=== PATIENT | female | born 1950 | race Caucasian/White ===

== ENCOUNTER → 2023-08-13 13:52 | Outpatient (REF) | payer OTHER, SELFPAY | LOC: HWRCS 13:52 | PROVIDERS: ATTENDING PHYSICIAN Internal Medicine Cardiovascular Disease; FAMILY PHYSICIAN Family Medicine | DX: I10 Essential (primary) hypertension (principal); I49.1 Atrial premature depolarization | CPT/HCPCS: 93306 ==

== ENCOUNTER → 2023-09-12 10:49 | Outpatient (REF) | payer OTHER, SELFPAY | LOC: HWRAD 10:49 | PROVIDERS: ATTENDING PHYSICIAN Family Medicine | DX: K76.0 Fatty (change of) liver, not elsewhere classified (principal) | CPT/HCPCS: 76700 ==

== ENCOUNTER → 2023-12-16 12:51 | Outpatient (REF) | payer OTHER, SELFPAY | LOC: HWWDC 12:51 | PROVIDERS: ATTENDING PHYSICIAN Family Medicine | DX: Z12.31 Encounter for screening mammogram for malignant neoplasm of breast (principal) | CPT/HCPCS: 77063; 77067 ==

== ENCOUNTER 2024-02-03 18:44 | Inpatient (IN) | payer OTHER, SELFPAY ==
[2024-02-03] VITALS (11 sets, daily range): BP systolic 125–171; BP diastolic 64–79; BMI 28.6; BMI 28.2
--- NOTE | 2024-02-03 12:56 | ED.CVA ---
History of Present Illness
General
Chief Complaint: CVA/TIA Symptoms
Source: patient
Exam Limitations: none
Time Seen by Provider: 02/03/24 12:38
Nursing documentation reviewed up to this point in time: agreed with
Onset of Stroke Symptoms
Onset of symptoms known: No
Date of onset of symptoms: 02/03/24
Time pt last seen normal is known: No
Date last time pt seen normal: 02/02/24
History of Present Illness
History of Present Illness:
The patient is a 73-year-old female with a past medical history of high blood pressure and high cholesterol who reports that she went to bed last night at 11 PM. She reports she woke up in the middle the night at 3 AM and noticed greatly diminished
vision from her left eye. Patient describes it as ' seeing black'. Patient denies eye pain, headache, weakness and numbness. Patient reports she went back to sleep and when she woke up at 9 AM, her symptoms were still there. Patient initially
tells me that she is unable to see any light or anything out of the left eye. Patient reports she is due for cataract surgery this week. She denies a history of stroke. She reports a history of high blood pressure and high cholesterol. She
denies a smoking history. The patient reports that if anything, her peripheral vision out of the left eye seems slightly better than any other parts of the vision from her left eye.
Past History
Past History
ED Past Medical History: HTN and Hypercholesterolemia
ED Past Surgical History: Other
Social History
Tobacco: Non-smoker
Alcohol: Other
Drug: None
Personal:
Living: with family
Employment: Other
Family History
Family History: Other
Review of Systems
Review of Systems
Allergies reviewed?: Yes
All Other Systems: ROS reviewed and negative except as documented in HPI and ROS
Constitutional: Reports no symptoms
EENT: Reports other
Respiratory: Reports no symptoms
Cardiac: Reports no symptoms
ABD/GI: Reports no symptoms
: Reports no symptoms
Musculoskeletal: Reports no symptoms
Skin: Reports no symptoms
Neurological: Reports other (Loss of vision of left eye)
Endocrine: Reports no symptoms
Hematologic/Lymphatic: Reports no symptoms
Psychiatric: Reports no symptoms
Phy Exam
Physical Exam
Physical Exam:
Physical Exam
General: no apparent distress, not acutely ill
Neck: supple. no meningeal signs. No bruit appreciated. No global tenderness of eyes bilaterally
Heart: s1/s2 regular rate and rhythm, no murmur. equal radial pulses.
Lungs: no acute respiratory distress. clear bilaterally
Abdomen: normal bowel sounds. not tender. no CVAT
Neuro: alert and orientedx3. Cranial nerves equal and symmetric bilaterally. 5 out of 5 strength in all extremities. Normal [id number]. Patient able to see light from left eye. Patient able to count to fingers
from left eye but states that otherwise the vision is extremely diminished from left eye. Visual andrew intact in right eye. Equal sensation in face, upper and lower extremities bilaterally. Answers all questions appropriately.
Skin: no rash
Psychiatric: well kept. interactive and cooperative
Extremities: no edema. no calf tenderness. negative homans. good distal pulses
Scores
NIH Stroke Score
Level of Consciousness: 0 - Alert
LOC Questions: 0-Answers both correctly
LOC Commands: 0-Performs both correctly
Best Horizontal Gaze: 0-Normal
Visual Anrdew: 2=Full hemianopia
Facial Palsy: 0=Normal, symmetrical
Motor - Right Arm: 0=No drift 10 seconds
Motor - Left Arm: 0=No drift 10 seconds
Motor - Right Le-No drift 5 seconds
Motor - Left Le-No drift 5 seconds
Limb Ataxia: 0-Absent
Sensation: 0-Normal
Best Language: 0-No aphasia
Dysarthria: 0-Normal
Extinction and Inattention: 0-No abnormality
Total Score:: 2
Course
Orders/Labs/Results
Orders:
Orders
02/03/24 12:52
Consult Neurology [NEUROLOGY CONSULT] Urgent
Consulting Provider: Khushbu Dickson
Was physician already notified: Yes
Reason for consult: visual loss L eye
02/03/24 12:54
CT Head & Neck Angio W/wo IV Urgent
Comment:
Reason For Exam: visual loss L eye
02/03/24 12:55
EKG [Electrocardiogram (*1)] Urgent
Reason for Study: TIA/Stroke
EKG- Treatment ONCE
02/03/24 13:00
Visual Acuity- Treatment ONCE
02/03/24 13:03
Complete Blood Count/With Diff Urgent
Comprehensive Metabolic Panel Urgent
Erythrocyte Sed Rate Urgent
02/03/24 14:30
Echo 2D MMode Color/Doppler Routine
Reason for Study: Thrombotic source for stroke-like sxs
02/03/24 14:39
[id number] Enzyme [S] Routine
Hemoglobin A1c [Glycohemoglobin (HgbA1c)] Routine
Lipid Profile [Cardiovascular Evaluation] Routine
02/03/24 14:41
MR Brain Without Contrast Routine
Comment:
Reason For Exam: L CRAO
OK for patient to be off Cardiac Monitoring for MRI: No
Recent pill cam endoscopy?: No
02/03/24 14:43
CARDIOLOGY CONSULT Routine
Consulting Provider: Yoandy Wood
Was physician already notified: Yes
Reason for consult: Holter/ILR
02/03/24 14:44
Aspirin Chewable [Low Strength Aspirin] 81 mg PO NOW STA
02/03/24 15:00
Aspirin Low Dose EC [Aspir Low (Enteric Coated)] 81 mg PO DAILY
Abnormal Lab Results
02/03/24
13:03
RBC 3.54 L 10^6/uL
(4.20-5.40)
Hgb 10.5 L g/dL
(12.0-16.0)
Hct 32.1 L %
(37.0-47.0)
MCHC 32.7 L g/dL
(33.0-37.0)
RDW 16.1 H %
(11.5-14.5)
MPV 10.9 H fL
(7.4-10.4)
Abs Immat Gran (auto) 0.3 H 10^3/uL
(0-0.05)
Immature Gran % 3.7 H %
(0-0.5)
Lymphocytes % 15.2 L %
(20.5-51.1)
Basophils % 2.3 H %
(0-2)
ESR 50 H mm/hour
(0-20)
Potassium 5.2 H mmol/L
(3.5-5.1)
BUN 20 H mg/dl
(7-17)
Glucose 111 H mg/dl
(70-99)
AST 45 H U/L
(14-36)
02/03/24 13:03
02/03/24 13:03
Vital Signs
Initial and Last Documented VS:
Initial Vital Signs
Temp Pulse Resp BP Pulse Ox
97.9 F 80 16 171/74 98
02/03/24 12:26 02/03/24 12:26 02/03/24 12:26 02/03/24 12:02/03/24 12:26
Last Documented Vital Signs
Temp Pulse Resp BP Pulse Ox
97.9 F 80 16 171/74 99
02/03/24 12:26 02/03/24 12:26 02/03/24 12:26 02/03/24 12:02/03/24 12:40
MDM/Problems Addressed
Differential Diagnosis Includes:
Acute retinal artery occlusion, intracranial mass, intracranial hemorrhage, retinal detachment
MDM/Problems Addressed:
Patient presents with acute visual loss from left eye
Chronic conditions affecting care: HTN
Acute Exacerbation and/or Progression of Chronic Illness:
Patient is acutely hypertensive which may be contributing to her loss of vision from left eye and causing brain ischemia
Acute Exacerbation and/or Progression of Chronic Illness: HTN
*Radiology
Radiology exam reviewed: radiology read reviewed
*Pulse Oximetry
Patient hypoxic: no
*EKG
Interpreted by ED Provider?: Yes
Interpretation: normal
Comparison EKG: no changes
Rate: normal
Rhythm: sinus
[place]: normal axis
Interval: normal interval
QRS Pattern: normal QRS
Ischemia: no ischemia
*Machine Riveter Interpretation
Rate: normal
Interpretation: normal
Rhythm: sinus
*Critical Care Note
Total Time (30-74mins, 75-104mins- exclusive of procedures): 35 minutes of critical ca
comment:
35 minutes of critical care given to the patient including frequent neurological assessments, speaking to neurology, reviewing patient's CT, counseling the patient and family and reviewing her blood work
Data Reviewed
Source: patient
Patient Management
Social determinants of health affecting care: Living situation and Strong social support
Discussion with other providers: Hospitalist and Other (Neurologist who performed a bedside consult)
Escalation/DeEscalation of care consider admission/obs:
Patient will be admitted for visual changes likely due to ischemic stroke
Update Note
Update Note:
Patient is not a tPA candidate given that her onset of symptoms were at 3 AM or even earlier.
ED Attending Note
-
Portions of this chart may have been created with voice recognition software.� Occasional wrong word or��sound alike� substitutions may have occurred due to the inherent limitations of voice recognition software.
Discharge Plan
Departure
Patient Disposition: Admit
Date of Disposition: 02/03/24
Time of Disposition: 14:41
Admit to: Telemetry
Presentation/result/management discussed w/ accepting MD/DO: Hospitalist
Patient with high blood pressure during this ER visit?: Yes
Condition: Good
Covid-19: Not Applicable
Discharge Problem:
Acute left retinal artery occlusion
Prescriptions:
No Action
lisinopril 20 MG tablet
20 mg PO DAILY
cholecalciferol (vitamin D3) [Vitamin D3] 2,000 UNIT capsule
2,000 unit PO DAILY
venlafaxine 75 mg capsule,extended release 24hr
75 mg PO DAILY
aspirin 81 mg Tablet,Delayed Release (Dr/Ec)
81 mg PO DAILY
ezetimibe 10 mg tablet
10 mg PO DAILY
Probiotic 10 billion cell Capsule
10,000 mmu cells PO DAILY
Interventions
Interventions:
*Risk Screen - Suicide Last Done: 02/03/24 12:26
*General Assessment Last Done: 02/03/24 12:26
*Neglect/Abuse Screening Last Done: 02/03/24 12:26
ED- Fall Risk Assessment Last Done: 02/03/24 12:40
*ED COVID-19 Vaccine History Last Done: 02/03/24 13:07
ED- Pulmonary Assessment Last Done: 02/03/24 12:40
ED- Neurological Assessment Last Done: 02/03/24 12:40
ED- Cardiac Assessment Last Done: 02/03/24 12:40
ED Swallowing Screen Last Done: 02/03/24 12:40
Discharge Date and Time
Print Language: S[place]UDAN[place]
[2024-02-03 13:12] LABS: % Basophils 2.3 % (0-2); % Eosinophils 3.1 % (0-6); % Immature Granulocytes 3.7 % (0-0.5); % Lymphocytes 15.2 % (20.5-51.1); % Monocytes 6.8 % (1.7-9.3); % Neutrophils 68.9 % (42.2-75.2); Absolute Basophils 0.2 10^3/uL (0-0.2); Absolute Eosinophils 0.2 10^3/uL (0-0.7); Absolute Immature Granulocytes 0.3 10^3/uL (0-0.05); Absolute Lymphocytes 1.2 10^3/uL (1.2-3.4); Absolute Monocytes 0.5 10^3/uL (0.1-0.6); Absolute Neutrophils 5.3 10^3/uL (1.4-6.5); Hematocrit 32.1 % (37.0-47.0); Hemoglobin 10.5 g/dL (12.0-16.0); Mean Corp Hgb Conc. 32.7 g/dL (33.0-37.0); Mean Corpuscular Hgb 29.7 pg (27.0-31.0); Mean Corpuscular Volume 90.7 fL (81.0-99.0); Mean Platelet Volume 10.9 fL (7.4-10.4); Nucleated Red Blood Cells % 0.5 %; Platelet Count 376 10^3/uL (130-400); Red Blood Cell Count 3.54 10^6/uL (4.20-5.40); Red Cell Dist. Width 16.1 % (11.5-14.5); White Blood Cell Count 7.8 10^3/uL (4.8-10.8)
--- NOTE | 2024-02-03 13:28 | CON.NEURO ---
Consultation
Order
Date of Consultation: 02/03/24
Requesting Provider: Janie Warner MD
Reason for Consult: Visual loss left eye
CC: left visual loss
HPI: This is a 73-year-old woman who presented to [facility] on February 03, 2024 with visual deficits. According to the patient she developed an acute painless visual loss in the left eye upon awakening around 3 AM today. Last time
seen in usual state of health�11 PM on 02/02/2024. She initially thought it was a film from her makeup remover and went back to sleep. The vision loss persisted in the morning, prompting her to seek medical attention. The patient reports taking
approximately 2 hours to arrive at the hospital due to transportation issues. The patient has a scheduled L cataract surgery for the upcoming Saturday. No reports of headache, dysarthria, motor or sensory deficits
ER VS: 171/74, 80, afebrile
PDMP: none
Labs: Hemoglobin�10.5,
CTA head/neck-no evidence of significant intra and extracranial stenosis.
PMH: HTN, DLP, osteopenia, OA, vitamin D deficiency, ILEANA, eczema, hepatic steatosis. nephrolithiasis
PSH:L TKA, tubal ligation, tonsillectomy, IAN, Ureteral stent.
SH: nonsmoker; ; social ETOh use
FH: pancreatic cancer
All: statins
ROS:Constitutional: Negative. Negative for chills, fever and unexpected weight change.
HENT: Positive for neck visual
Eyes: Negative. Negative for photophobia, pain and visual disturbance.
Respiratory: Negative for cough, choking and shortness of breath.
Cardiovascular: Negative for chest pain, palpitations and leg swelling.
Gastrointestinal: Negative for abdominal pain and vomiting.
Endocrine: Negative. Negative for cold intolerance.
Genitourinary: Negative for dysuria, flank pain and urgency.
Musculoskeletal: Negative for back pain, gait problem, neck pain and neck stiffness.
Skin: Negative for rash.
Allergic/Immunologic: Negative. Negative for immunocompromised state.
Neurological: Negative for dizziness, tremors, seizures, speech difficulty, numbness and headaches.
Psychiatric/Behavioral: Negative for behavioral problems, confusion and hallucinations.
General: Well developed. In no acute distress.
Cardio: Regular rate and rhythm without murmur. Extremities are without cyanosis or edema.
Neuro:
Mental Status: Alert, oriented to person, place, and date. Normal attention and recall. Good fund of knowledge. Follows complex requests across the midline. Comprehension, naming, and repetition intact.
Cranial Nerves: OS-no light perception. Pupils are equally round and reactive to light. EOMs full. Visual andrew full to confrontation on the R. No ptosis. No nystagmus. V1-V3 intact to light touch and pinprick bilaterally, symmetric. Face
symmetric. Normal hearing AU. The palate elevated well. SCMs and traps 5/5. Tongue midline. No dysarthria.
Motor: Normal bulk and tone. No pronator or arm drift. Strength 5/5 throughout. No clonus.
Reflexes: 2+ throughout the upper extremities and knees. Plantar responses flexor bilaterally.
Sensory: Normal vibration and JPS at the toes
Coordination: No dysmetria or tremor.
Gait: deferred
Assessment and Plan:
I. L central retinal artery occlusion(CRAO).
II. Hilar lymphadenopathy.
III. HTN.
-Continue Telemetry monitoring.
-Brain MRI without ileana
-Continue ASA 81 mg QD indefinitely.
-Lipitor 40 mg QHS.
-Please check HbA1C, LDL,ESR, CRP, HERMAN
-Cardiology consult
-Loop recorder if no events of Telemetry and unremarkable TTE
-PT.
-Ophthalmology consult
-DVT prophylaxis.
I personally reviewed all radiology and labs along with past medical records pertinent to current medical problems. Total time spent in patient care is 60 minutes.
Thank you for allowing us to participate in the care of this patient. We will continue to follow. Please do not hesitate to contact us with any questions or concerns.
Subjective/Objective
Subjective Data
Date of Service: February 03, 2024
Objective Data
Vital Signs
Temp Pulse Resp BP Pulse Ox
36.6 C 80 16 171/74 99
02/03/24 12:26 02/03/24 12:02/03/24 12:02/03/24 12:02/03/24 12:40
Lab Results
02/03/24 13:03
Patient Allergies
No Known Allergies Allergy (Verified 02/03/24 12:26)
Medications
-
Home Medications
�Medication �Instructions �Recorded
lisinopril 20 mg tablet 20 mg PO DAILY Blood Pressure 11/21/07
cholecalciferol (vitamin D3) 50 2,000 unit PO DAILY Supplement 09/11/16
mcg (2,000 unit) capsule (Vitamin
D3)
Lactobacillus acidophilus 10 10,000 mmu cells PO DAILY probiotic 02/03/24
billion cell capsule (Probiotic)
aspirin 81 mg tablet,delayed 81 mg PO DAILY Blood Clot 02/03/24
release Prevention/Tx
ezetimibe 10 mg tablet 10 mg PO DAILY High Cholesterol 02/03/24
venlafaxine 75 mg capsule,extended 75 mg PO DAILY depression/anxiety 02/03/24
release 24 hr
Vital Signs and Labs
-
Vital Signs and Labs:
Vital Signs
Temp Pulse Resp BP Pulse Ox
36.6 C 80 16 171/74 99
02/03/24 12:26 02/03/24 12:26 02/03/24 12:02/03/24 12:26 02/03/24 12:40
Lab Results
02/03/24 13:03
02/03/24 13:03
Sodium 142 mmol/L (135-145) 02/03/24 13:03
Potassium 5.2 mmol/L (3.5-5.1) H 02/03/24 13:03
BUN 20 mg/dl (7-17) H 02/03/24 13:03
Glucose 111 mg/dl (70-99) H 02/03/24 13:03
Calcium 9.6 mg/dl (8.4-10.2) 02/03/24 13:03
Home Medications
-
Home Medications
lisinopril 20 mg tablet 20 mg PO DAILY Blood Pressure 11/21/07
cholecalciferol (vitamin D3) 50 mcg (2,000 unit) capsule (Vitamin D3) 2,000 unit PO DAILY Supplement 09/11/16
Lactobacillus acidophilus 10 billion cell capsule (Probiotic) 10,000 mmu cells PO DAILY probiotic 02/03/24
aspirin 81 mg tablet,delayed release 81 mg PO DAILY Blood Clot Prevention/Tx 02/03/24
ezetimibe 10 mg tablet 10 mg PO DAILY High Cholesterol 02/03/24
venlafaxine 75 mg capsule,extended release 24 hr 75 mg PO DAILY depression/anxiety 02/03/24
[2024-02-03 13:31] LABS: ALT (SGPT) 20 U/L (0-35); AST (SGOT) 45 U/L (14-36); Albumin 4.8 g/dl (3.5-5.0); Alkaline Phosphatase 124 U/L (38-126); Blood Urea Nitrogen 20 mg/dl (7-17); Calcium 9.6 mg/dl (8.4-10.2); Carbon Dioxide 25 mmol/L (22-30); Chloride 104 mmol/L (98-107); Estimated Creatinine Clearance 67 ml/min; Glucose 111 mg/dl (70-99); Potassium 5.2 mmol/L (3.5-5.1); Sodium 142 mmol/L (135-145); Total Bilirubin 0.7 mg/dl (0.2-1.3); Total Protein 8.2 g/dl (6.3-8.2); eGFR > 60.00
[2024-02-03 14:31] LABS: Erythrocyte Sed Rate 50 mm/hour (0-20)
[2024-02-03] MEDS: LOW STRENGTH ASPIRIN 81 MG PO (15:14)
--- NOTE | 2024-02-03 15:33 | HPS.HSE ---
Family Physician
-
Family Physician:
Chief Complaint
-
Left Vision Loss
History of Present Illness
Patient is a 73 y/o female past medical history of hypertension, hyperlipidemia and anxiety who presents with vision loss. Patient awoke about 3AM this morning and noted she was unable to see out of her left eye. She initially felt it was related
to her makeup remover so she went back to sleep. Upon waking later in the morning the vision loss remained prompting her to seek medical attention. She denies focal numbness, tingling or weakness. She denies speech difficulties. She denies
headache. She denies prior history of stroke.
Medical History
Past Medical History
Past Medical History: Reports Other
Additional Past Medical History:
Essential Hypertension
Hyperlipidemia
Anxiety
Osteoarthritis
Anemia
Past Surgical History: Reports Other
Additional Past Surgical History:
Tubal Ligation
Hysterectomy
Left Knee Replacement
Social History
Tobacco: Non-smoker
Alcohol: None
Family History
Family History: Not pertinent
Allergies / Home Medications
Allergies reflects when Allergies were last updated in [employer].
Home Medications with original date entered in [employer]
Allergy/Medication List:
Allergies
Allergy/AdvReac Type Severity Reaction Status Date / Time
No Known Allergies Allergy Verified 02/03/24 12:26
Home Medications
lisinopril 20 mg tablet 20 mg PO DAILY Blood Pressure 11/21/07
cholecalciferol (vitamin D3) 50 mcg (2,000 unit) capsule (Vitamin D3) 2,000 unit PO DAILY Supplement 09/11/16
Lactobacillus acidophilus 10 billion cell capsule (Probiotic) 10,000 mmu cells PO DAILY probiotic 02/03/24
aspirin 81 mg tablet,delayed release 81 mg PO DAILY Blood Clot Prevention/Tx 02/03/24
ezetimibe 10 mg tablet 10 mg PO DAILY High Cholesterol 02/03/24
venlafaxine 75 mg capsule,extended release 24 hr 75 mg PO DAILY depression/anxiety 02/03/24
Review of Systems
-
A 12 point ROS was completed and negative except as noted: Yes
Constitutional: Denies Fever or Chills
Respiratory: Denies Cough or Trouble Breathing
Cardiac: Denies Chest Pain or Palpitations
Abdomen/GI: Denies Abdominal Pain, Nausea, Vomiting or Diarrhea
Neurological: Reports See HPI
Physical Exam
Vital Signs
Vital Signs
Temp Pulse Resp BP Pulse Ox
97.9 F 80 16 171/74 99
02/03/24 12:26 02/03/24 12:26 02/03/24 12:26 02/03/24 12:26 02/03/24 12:40
Physical Exam
General: Comfortable and Conversant
HEENT: Anicteric, Moist mucous membranes and Other (EOMI; Pupils dilated following dilated retina exam performed by ophthalmology)
Respiratory: Clear and Non Labored Respirations
Cardiac: S1/S2 and Regular Rhythm
GI: Soft and Non Tender
Rectal: Deferred by Provider
Musculoskeletal: No Clubbing, No Cyanosis and No Edema
Skin: Warm and Dry
Neuro: Awake, Alert, Oriented and Nonfocal/grossly intact
Psych: Calm
Laboratory Results
-
02/03/24 13:03
02/03/24 13:03
Laboratory Results
Total Bilirubin 0.7 mg/dl (0.2-1.3) 02/03/24 13:03
AST 45 U/L (14-36) H 02/03/24 13:03
ALT 20 U/L (0-35) 02/03/24 13:03
Alkaline Phosphatase 124 U/L (38-126) 02/03/24 13:03
Data Reviewed
-
CT Scan: Report Reviewed by me
Lab Data: Labs Reviewed by me
Impression/Plan
-
Left Eye Vision Loss, concern for left central retinal artery occlusion vs giant cell arteritis
-Patient evaluated by Neurology and Ophthamology in ED
-Continue aspirin
-Check Brain MRI
-Start methylprednisolone 1000mg IV Daily
-Consult Vascular Surgery for temporal arterty biopsy
Essential Hypertension
-Hold lisinopril due to mild hyperkalemia
Hyperlipidemia
-Check Lipid Panel
-Start Lipitor 40mg Daily
-Continue Zetia
Anxiety
-Continue venlafaxine
DVT proph: SCDs
Code Status: Full Code
[2024-02-03 15:46] LABS: HDL Cholesterol 39 mg/dl; LDL Cholesterol, Calculated 129 mg/dl; Total Cholesterol 210 mg/dl (50-199); Triglyceride 211 mg/dl (10-149); Very Low Density Lipoprotein 42 mg/dl (0-30)
[2024-02-03] MEDS: ASPIR LOW (ENTERIC COATED) PO (16:06)
[2024-02-03] MEDS: DELTASONE 60 MG PO (17:51)
--- NOTE | 2024-02-03 18:35 | W.PN.UPDATE ---
Update Note
Progress Note Update
This is an addendum to the H&P written by Christine Johnson on 02/03/2024.� Patient seen and examined independently with PA.
73-year-old female past medical history of cataracts, hypertension, anxiety/depression, osteoarthritis, osteoporosis, gallstones, ureteral calculi status post stenting, obesity presenting with acute painless vision loss in the left eye since this
morning.� No other neurological symptoms.
Concern for central retinal artery occlusion.� Ophthalmology consulted for retinal examination.�Seen by Dr. Rodas who thinks either central retinal artery occlusion or possibly temporal arteritis.��CTA head and neck shows no significant vascular
occlusion, aneurysm or dissection.� Neurology consulted and recommended MRI brain, continue aspirin.� Check A1c, lipid panel, HERMAN, CRP, ESR.� Echocardiogram unremarkable. Starting 1000 methylprednisolone daily. NPO past midnight for temporal artery
biopsy by vascular tomorrow.�
Labs show mild hyperkalemia.� Hold lisinopril.�
--- NOTE | 2024-02-03 19:09 | EDRN ---
vital signs captured from previous nurse
--- NOTE | 2024-02-03 20:45 | PTCARENOTE ---
Pt transferred from ED. Pt AAOX3, able to make needs known, VSS. NIH 2, neuro checks performed, vision loss in left eye. Pt oriented to unit, call sosa within reach, bed in lowest position. Will continue with current plan.
[2024-02-03] MEDS: SOLU-MEDROL 258 MG IV (21:57)
[2024-02-04] VITALS (10 sets, daily range): BP systolic 14–163; BP diastolic 59–91; PULSE 84
[2024-02-04] MEDS: ZETIA 10 MG PO (07:50)
[2024-02-04] MEDS: EFFEXOR XR 75 MG PO (07:50)
[2024-02-04] MEDS: ASPIR LOW (ENTERIC COATED) 81 MG PO (07:50)
--- NOTE | 2024-02-04 08:04 | CON.CAR ---
Addendum entered and electronically signed by Erika Cruz MD 02/04/24 10:07:
I saw and examined the patient.
The CUSTOMER SECURITY CLERK's note was reviewed and I agree with the note.
Comment: 73-year-old female who is known to me in the outpatient setting with hypertension, dyslipidemia and statin intolerance presenting with sudden onset of left sided vision loss. She is beginning to see some peripheral vision now, no other
symptoms associated with this finding. On exam she is a regular rate and rhythm with a normal S1-S2 no murmurs or rubs were appreciated abdomen soft nontender nondistended without needs medically. Extremities are warm well-perfused. Lungs are
clear to auscultation. EKG tracing shows normal sinus rhythm. Telemetry shows sinus rhythm. Echocardiogram 02/03/2024 normal biventricular systolic function trivial pericardial effusion no significant valve disease. No source of emboli
identified.
For her sudden vision loss, diagnosis is needed. If this is GCA, then would continue current care. If this was a CVA, would need to consider embolic etiology as well as intensify her risk factor management. Given age, would recommend an
implantable loop recorder. Would recommend PCSK9 inhibitor at that point. Plan is for further evaluation today with MRI and temporal artery biopsy.She is already receiving high-dose steroids. Vascular, neurology and ophthalmology all involved.
Will follow.
Original Note:
Consultation
Consultation Request
Date/Time Consultation Requested: 02/03/2024 14:45
Date/Time Consultation Performed: 02/04/2024 08:00
Requesting Provider: Dr. Dickson
Performing Provider: ANGELA Moyer for Dr. Cruz
Reason for Consultation: Retinal artery occlusion
Medical History
-
Chief Complaint: Vision loss
History of Present Illness:
Pennie Sorto is a 73-year-old female (known to Dr. Cruz, her primary electrical assembler), with hypertension, dyslipidemia and, statin intolerance, who presented to the emergency department yesterday, 02/03/2024 with sudden vision loss in her left
eye. She reports she woke up at 3:00 in the morning prior to arrival to use the bathroom and had some visual loss but not complete. When she woke up in the morning she could not see out of her left eye. Differential diagnosis includes retinal
artery occlusion and giant cell arteritis. She has been started on steroids. She has been seen by ophthalmology and neurology. Cardiology was consulted for the possibility of cardiac monitoring versus ILR. She is having no chest pain. No
palpitations. No atrial fibrillation on telemetry. Some of her vision has returned peripherally. She is currently on methylprednisolone 1000 mg daily.
Past Medical History
Past Medical History: HTN and Hypercholesterolemia
Past Surgical History: Gynecological and Orthopedic
Social History
Tobacco: Non-Smoker
Alcohol: Occasional
Drug: None
Employment: Retired
Family History
Family History: Reviewed & Not Pertinent
Allergies / Home Medications
Allergy/AdvReac Type Severity Reaction Status Date / Time
No Known Allergies Allergy Verified 02/03/24 12:26
�Medication �Instructions �Recorded �Confirmed �Type
lisinopril 20 mg tablet 20 mg PO DAILY Blood Pressure 11/21/07 02/03/24 History
cholecalciferol (vitamin D3) 50 2,000 unit PO DAILY Supplement 09/11/16 02/03/24 History
mcg (2,000 unit) capsule (Vitamin
D3)
Lactobacillus acidophilus 10 10,000 mmu cells PO DAILY probiotic 02/03/24 02/03/24 History
billion cell capsule (Probiotic)
aspirin 81 mg tablet,delayed 81 mg PO DAILY Blood Clot 02/03/24 02/03/24 History
release Prevention/Tx
ezetimibe 10 mg tablet 10 mg PO DAILY High Cholesterol 02/03/24 02/03/24 History
venlafaxine 75 mg capsule,extended 75 mg PO DAILY depression/anxiety 02/03/24 02/03/24 History
release 24 hr
Review of Systems
-
History Source: Patient
All other systems: Negative unless noted
Constitutional: No Symptoms
EENT: Other (left eye vision loss)
Respiratory: No Symptoms
Cardiac: No Symptoms
Abdomen/GI: No Symptoms
: No Symptoms
Musculoskeletal: No Symptoms
Skin: No Symptoms
Neurological: No Symptoms
Endocrine: No Symptoms
Hematologic/Lymphatic: No Symptoms
Physical Exam
Vital Signs
Temp Pulse Resp BP Pulse Ox
97.9 F 93 14 143/91 93
02/04/24 03:20 02/04/24 03:20 02/04/24 03:20 02/04/24 03:20 02/04/24 03:20
Physical Exam
General: Well Developed, Well Nourished, No Apparent Distress and Comfortable
HEENT: Normocephalic and Anicteric
Respiratory: Clear and Non Labored Respirations
Cardiac: S1/S2 and Regular Rhythm
Breast: Deferred by me
GI: Soft, Non Tender, Non Distended and Normal Bowel Sounds
Rectal: Deferred by Provider
Genito-urinary: No Costovertebral Tender
Musculoskeletal: No Clubbing, No Cyanosis and No Edema
Skin: Warm and Dry
Neuro: AO x 3
Hematologic/Lymphatic: No Lymphadenopathy
Psych: Calm
Impression / Plan
-
BACKGROUND: 73F with HTN, HLD, statin intolerance presented with loss of vision from left eye
Primary electrical assembler: Dr. Cruz
IMPRESSION/PLAN:
Left eye vision loss
-Retinal artery occlusion versus giant cell arteritis
-ESR 50, CRP 6.30
-MRI pending
Ectopic atrial rhythm, denies palpitations
HTN
-Lisinopril on hold by primary service for mild hyperkalemia, BMP pending
Dyslipidemia
-Lipid panel: TC 210, LDL 129, HDL 39, TG 211
-Intolerant to simvastatin, atorvastatin, and rosuvastatin (all cause myalgia)
-Continue Zetia
SUBJECTIVE:
Denies palpitations. No atrial fibrillation on telemetry.
DATA:
Transthoracic echocardiogram, 02/03/2024:
CONCLUSIONS
Normal left ventricular size, wall thickness and systolic function. No regional
wall motion abnormalities are seen. LV ejection fraction is 60% .
Mild tricuspid regurgitation.
Mild pulmonic regurgitation.
Trivial pericardial effusion.
Compared to previous echo 08/13/23 there is now a trivial pericardial effusion.
Data Reviewed
-
EKG: Report Reviewed by me (Sinus rhythm, rate 76)
Medical Tests (Nuc Med, Echo etc): Report Reviewed by me (Echocardiogram as above)
Labs: Labs Reviewed by me
Old Records: Reviewed
[2024-02-04 08:38] LABS: Glycohemoglobin (HgbA1c) 5.3 % (4.0-5.6)
[2024-02-04 08:48] LABS: Hematocrit 32.1 % (37.0-47.0); Hemoglobin 10.6 g/dL (12.0-16.0); Mean Corpuscular Volume 87.9 fL (81.0-99.0); Mean Platelet Volume 11.1 fL (7.4-10.4); Platelet Count 424 10^3/uL (130-400); Red Blood Cell Count 3.65 10^6/uL (4.20-5.40); Red Cell Dist. Width 16.1 % (11.5-14.5); White Blood Cell Count 12.7 10^3/uL (4.8-10.8)
[2024-02-04 09:08] LABS: Blood Urea Nitrogen 18 mg/dl (7-17); Calcium 9.9 mg/dl (8.4-10.2); Carbon Dioxide 20 mmol/L (22-30); Chloride 105 mmol/L (98-107); Estimated Creatinine Clearance 66 ml/min; Glucose 179 mg/dl (70-99); Potassium 4.6 mmol/L (3.5-5.1); Sodium 140 mmol/L (135-145); eGFR > 60.00
--- NOTE | 2024-02-04 09:24 | CON.VAS ---
Addendum entered and electronically signed by Grover Quezada III, MD 02/04/24 11:37:
This patient was seen and examined with ANGELA Trinh. I agree with the history and physical exam as well as the assessment and plan. I have the following additions:
Symptom constellation has raised concerns from the medical team for temporal arteritis as a potential diagnosis.
We have been asked to perform temporal artery biopsy.
The technical aspects of this procedure were discussed with the patient. The benefits and rationale for this approach were discussed with her in detail. Operative risks were discussed with her in detail including but not limited to bleeding,
infection, wound healing complications and negative biopsy result. She expressed a clear understanding of our conversation and agrees to proceed with surgery as detailed above.
Signed:
Grover Quezada III, MD
[facility]
[phone] (fdpy)
Original Note:
Consultation
Consultation Request
Date/Time Consultation Performed: 02/04/2024 0800
Requesting Provider: 02/04/2024 0800
Performing Provider: Tessy Nunn GRADUATE RESEARCH ASSISTANT-C, for Grover Quezada III, MD
Reason for Consultation: Left eye acute vision loss
Medical History
-
Chief Complaint: Acute painless left eye vision loss
History of Present Illness:
This is a 73-year-old female with significant past medical history of hypertension, hyperlipidemia, osteoarthritis, anemia, and anxiety who presents with acute painless left eye vision loss. Patient presented to ED on 02/03/2024, reporting acute
left eye vision loss. Patient notes she initially woke up at 3AM on 02/03/2024 and noted that she was unable to see out of her left eye. She endorses that she was very fatigued so she initially felt maybe her eye make-up remover was in her eye
clouding her vision. However, when she woke for the day around 9 AM she realized she had lost complete vision in her left eye prompting her to seek medical attention. She denies any accompanying symptoms including paresthesia, unilateral weakness,
aphasia, dysarthria, headache, prior vision loss/transient vision loss, or pain over temporal area. She does endorse intermittent jaw pain, however notes that is her baseline from clenching her teeth overnight. She denies prior history of seeing a
vascular surgeon or vascular intervention. Denies any prior history of stroke or strokelike symptoms.
Past Medical History
Past Medical History: HTN and Other (hyperlipidemia, anxiety, Osteoarthritis, Anemia, eczema, hepatic steatosis, nephrolithiasis)
Past Surgical History: Gynecological (Tubal Ligation, Hysterectomy) and Orthopedic (Left Knee Replacement)
Social History
Tobacco: Non-Smoker
Alcohol: None
Allergies / Home Medications
Allergy/AdvReac Type Severity Reaction Status Date / Time
No Known Allergies Allergy Verified 02/03/24 12:26
�Medication �Instructions �Recorded �Confirmed �Type
lisinopril 20 mg tablet 20 mg PO DAILY Blood Pressure 11/21/07 02/03/24 History
cholecalciferol (vitamin D3) 50 2,000 unit PO DAILY Supplement 09/11/16 02/03/24 History
mcg (2,000 unit) capsule (Vitamin
D3)
Lactobacillus acidophilus 10 10,000 mmu cells PO DAILY probiotic 02/03/24 02/03/24 History
billion cell capsule (Probiotic)
aspirin 81 mg tablet,delayed 81 mg PO DAILY Blood Clot 02/03/24 02/03/24 History
release Prevention/Tx
ezetimibe 10 mg tablet 10 mg PO DAILY High Cholesterol 02/03/24 02/03/24 History
venlafaxine 75 mg capsule,extended 75 mg PO DAILY depression/anxiety 02/03/24 02/03/24 History
release 24 hr
Review of Systems
-
History Source: Patient
Constitutional: Reports No Symptoms
EENT: Reports Other (acute eye vision loss)
Respiratory: Reports No Symptoms
Cardiac: Reports No Symptoms
Abdomen/GI: Reports No Symptoms
: Reports No Symptoms
Musculoskeletal: Reports No Symptoms
Skin: Reports No Symptoms
Neurological: Reports No Symptoms
Endocrine: Reports No Symptoms
Physical Exam
Vital Signs
Temp Pulse Resp BP Pulse Ox
97.9 F 93 14 143/91 93
02/04/24 03:20 02/04/24 03:20 02/04/24 03:20 02/04/24 03:20 02/04/24 03:20
Lab Results
02/04/24 08:13
02/04/24 08:13
Physical Exam
General: No Apparent Distress and Comfortable
HEENT: Normocephalic, Anicteric and Atraumatic
Respiratory: Non Labored Respirations
Cardiac: Negative JVD
GI: Soft, Non Tender and Non Distended
Musculoskeletal: No Edema
Skin: Warm and Dry
Neuro: AO x 3
Assessment / Plan
-
Assessment: 73 year old female presents with acute left eye vision loss with concern for giant cell arteries, primary team requesting left temporal artery biopsy
Plan:
Will proceed with left temporal artery biopsy today (02/04/2024)
Maintain n.p.o. status
--- NOTE | 2024-02-04 10:28 | W.PN.NEURO.1 ---
Today's Communication / Plan
-
.
Subjective/Objective
Subjective Data
Date of Service: February 04, 2024
Ms. Sorto states that her left visual deficits have been stable. No reports of headaches, eye pain, motor, sensory or speech change
Blood pressure has improved, remains afebrile.
Labs: Lab hemoglobin A1c�5.3, LDL�129, ESR�50, normal CRP.
Ms. Sorto was seen by Dr. Rodas yesterday. No official report is available at time of the interview
Brain MRI�pending
CTA head/neck-no evidence of significant intra and extracranial stenosis.
TTE(02/03/2024) Interatrial septum is intact with no evidence of shunting by color flow Doppler. No intracardiac mass or thrombus formation seen.
PMH: HTN, DLP, osteopenia, OA, vitamin D deficiency, ILEANA, eczema, hepatic steatosis. nephrolithiasis
PSH:L TKA, tubal ligation, tonsillectomy, IAN, Ureteral stent.
SH: nonsmoker; ; social ETOh use
FH: pancreatic cancer
All: statins
ROS:Constitutional: Negative. Negative for chills, fever and unexpected weight change.
HENT: Positive for neck visual
Eyes: Negative. Negative for photophobia, pain and visual disturbance.
Respiratory: Negative for cough, choking and shortness of breath.
Cardiovascular: Negative for chest pain, palpitations and leg swelling.
Gastrointestinal: Negative for abdominal pain and vomiting.
Endocrine: Negative. Negative for cold intolerance.
Genitourinary: Negative for dysuria, flank pain and urgency.
Musculoskeletal: Negative for back pain, gait problem, neck pain and neck stiffness.
Skin: Negative for rash.
Allergic/Immunologic: Negative. Negative for immunocompromised state.
Neurological: Negative for dizziness, tremors, seizures, speech difficulty, numbness and headaches.
Psychiatric/Behavioral: Negative for behavioral problems, confusion and hallucinations.
General: Well developed. In no acute distress.
Cardio: Regular rate and rhythm without murmur. Extremities are without cyanosis or edema.
Neuro:
Mental Status: Alert, oriented to person, place, and date. Normal attention and recall. Good fund of knowledge. Follows complex requests across the midline. Comprehension, naming, and repetition intact.
Cranial Nerves: OS-no light perception. Pupils are equally round and reactive to light. EOMs full. Visual andrew full to confrontation on the R. No ptosis. No nystagmus. V1-V3 intact to light touch and pinprick bilaterally, symmetric. Face
symmetric. Normal hearing AU. The palate elevated well. SCMs and traps 5/5. Tongue midline. No dysarthria.
Motor: Normal bulk and tone. No pronator or arm drift. Strength 5/5 throughout. No clonus.
Reflexes: 2+ throughout the upper extremities and knees. Plantar responses flexor bilaterally.
Sensory: Normal vibration and JPS at the toes
Coordination: No dysmetria or tremor.
Gait: deferred
Assessment and Plan:
I. 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
II. Hilar lymphadenopathy.
III. HTN.
-Continue Telemetry monitoring.
-Brain MRI without ileana
-Continue ASA 81 mg QD indefinitely.
-Lipitor 40 mg QHS.
-Please follow-up HERMAN level
-Vascular surgery follow-up
-Cardiology consult
-Loop recorder if no events of Telemetry
-PT.
-Ophthalmology consult
-DVT prophylaxis.
I personally reviewed all radiology and labs along with past medical records pertinent to current medical problems. Total time spent in patient care is 37 minutes.
Thank you for allowing us to participate in the care of this patient. We will continue to follow. Please do not hesitate to contact us with any questions or concerns.
Objective Data
Vital Signs
Temp Pulse Resp BP Pulse Ox
36.6 C 93 14 143/91 93
02/04/24 03:20 02/04/24 03:20 02/04/24 03:20 02/04/24 03:20 02/04/24 03:20
Lab Results
02/04/24 08:13
02/04/24 08:13
Sodium 140 mmol/L (135-145) 02/04/24 08:13
Potassium 4.6 mmol/L (3.5-5.1) 02/04/24 08:13
BUN 18 mg/dl (7-17) H 02/04/24 08:13
Glucose 179 mg/dl (70-99) H 02/04/24 08:13
Calcium 9.9 mg/dl (8.4-10.2) 02/04/24 08:13
LDL Cholesterol, Calc 129 mg/dl 02/03/24 15:18
Patient Allergies
No Known Allergies Allergy (Verified 02/03/24 12:26)
Vital Signs and Labs
-
Vital Signs and Labs:
Vital Signs
Temp Pulse Resp BP Pulse Ox
36.6 C 93 14 143/91 93
02/04/24 03:20 02/04/24 03:20 02/04/24 03:20 02/04/24 03:20 02/04/24 03:20
Lab Results
02/04/24 08:13
02/04/24 08:13
Sodium 140 mmol/L (135-145) 02/04/24 08:13
Potassium 4.6 mmol/L (3.5-5.1) 02/04/24 08:13
BUN 18 mg/dl (7-17) H 02/04/24 08:13
Glucose 179 mg/dl (70-99) H 02/04/24 08:13
Calcium 9.9 mg/dl (8.4-10.2) 02/04/24 08:13
LDL Cholesterol, Calc 129 mg/dl 02/03/24 15:18
Medications
-
Medications:
Generic Name Dose Route Start Last Admin
Trade Name Freq PRN Reason Stop Dose Admin
Acetaminophen 650 mg 02/03/24 20:22
Acetaminophen 650 Mg Rectal Suppository RECTAL 03/02/24 20:21
Q4HPRN PRN
ROSENBERG, mild pain, or temp >100.4F
Acetaminophen 650 mg 02/03/24 20:22
Acetaminophen 325 Mg Tablet PO 03/02/24 20:21
Q4HPRN PRN
ROSENBERG, mild pain, or temp >100.4F
Aspirin 81 mg 02/03/24 15:00 02/04/24 07:50
Aspirin 81 Mg (Enteric Coated) Tablet PO 03/02/24 14:59 81 mg
DAILY CECILIA Administration
Atorvastatin Calcium 40 mg 02/04/24 18:00
Atorvastatin (Lipitor) 40 Mg Tablet PO 03/03/24 17:59
QPM CECILIA
Ezetimibe 10 mg 02/04/24 08:00 02/04/24 07:50
Ezetimibe (Zetia) 10 Mg Tablet PO 03/03/24 07:59 10 mg
DAILY CECILIA Administration
Methylprednisolone Sodium 258 mls @ 258 mls/hr 02/03/24 21:00 02/03/24 21:57
Succinate 1,000 mg/ Sodium IV 02/05/24 21:59 258 mls
Chloride Q24H CECILIA Administration
Sodium Chloride 0 flush 02/03/24 21:00
Sodium Chloride 0.9% (Flush) Syringe IV 03/02/24 20:59
PER PROTOCOL CECILIA
Venlafaxine HCl 75 mg 02/04/24 08:00 02/04/24 07:50
Venlafaxine 75 Mg Extended Release Capsule PO 03/03/24 07:59 75 mg
DAILY CECILIA Administration
Home Medications
-
Home Medications
lisinopril 20 mg tablet 20 mg PO DAILY Blood Pressure 11/21/07
cholecalciferol (vitamin D3) 50 mcg (2,000 unit) capsule (Vitamin D3) 2,000 unit PO DAILY Supplement 09/11/16
Lactobacillus acidophilus 10 billion cell capsule (Probiotic) 10,000 mmu cells PO DAILY probiotic 02/03/24
aspirin 81 mg tablet,delayed release 81 mg PO DAILY Blood Clot Prevention/Tx 02/03/24
ezetimibe 10 mg tablet 10 mg PO DAILY High Cholesterol 02/03/24
venlafaxine 75 mg capsule,extended release 24 hr 75 mg PO DAILY depression/anxiety 02/03/24
[2024-02-04] MEDS: PERIDEX 0.12% ORAL RINSE 15 ML PO (13:30)
[2024-02-04] MEDS: BACTROBAN 2% OINTMENT 1 APPLIC NASAL (13:31)
--- NOTE | 2024-02-04 14:50 | W.PN.HOSP.TC ---
Addendum entered and electronically signed by Guerline Smith MD 02/04/24 19:47:
I saw and evaluated the patient independently. I reviewed the resident�s note and agree with findings and plan as documented by Dr. Andrade.
GENERAL: well developed, well nourished, female in no apparent distress
HEENT: NC/AT--no tenderness to bilateral temporal arteries
HEART: regular rate and rhythm, +S1, +S2
LUNGS : clear to auscultation bilaterally
ABDOM: soft, nontender, nondistended, + bowel sounds
EXT: no cyanosis, clubbing, or edema
NEUROLOGIC: grossly intact with exception of vision
Acute Left eye vision loss--woke up with it--central retinal artery occlusion, GCA both possible but GCA less likely--apprec Ophtho, neuro, vascular--MRI brain without acute issues--Echo unremarkable--ESR elevated but not specific--s/p temporal
artery biopsy--Appreciate cardiology input-recommended PCSK9 inhibitor--Continue high-dose steroids--Temporal artery biopsy pending
Hilar lymphadenopathy noted on head CT---Ordered CT chest for further evaluation--HERMAN level pending--sarcoidosis in differential
Thrombocytosis--Likely reactive to inflammation--Continue to monitor
Mild hyperkalemia--resolved on BMP today, resume lisinopril
Dyslipidemia---Lipid panel: TC 210, LDL 129, HDL 39, TG 211--Continue Zetia--Start atorvastatin 40 mg at bedtime per neuro
DVT proph
code status--FULL CODE
Original Note:
Today's Communication/Plan
-
Temporal artery biopsy
Continue steroids for now
Assessment / Plan
Assessment / Plan
73-year-old female past medical history of cataracts, hypertension, anxiety/depression, osteoarthritis, osteoporosis, gallstones, ureteral calculi status post stenting, obesity presented with acute painless vision loss in the left eye.
# Left eye vision loss
-Differentials include retinal artery occlusion versus giant cell arthritis versus retinal detachment
-CT head and MRI brain unremarkable( No radiographic evidence of optic neuritis)
-ESR 50, CRP 6.3
-Echo unremarkable-normal biventricular systolic function, no significant valve disease
-Appreciate cardiology input-recommended PCSK9 inhibitor
-Continue high-dose steroids
-Temporal artery biopsy pending
# Hilar lymphadenopathy noted on head CT
-Ordered CT chest for further evaluation
-HERMAN level pending
# Thrombocytosis
-Likely reactive to inflammation
-Continue to monitor
# Mild hyperkalemia
-resolved on BMP today, resume lisinopril
-continue to monitor
# Dyslipidemia
-Lipid panel: TC 210, LDL 129, HDL 39, TG 211
-Continue Zetia
-Start atorvastatin 40 mg at bedtime per neuro
Full code
Anticipated Discharge: 24 - 48 hours
Subjective/Interval History
-
Date of Service: February 04, 2024
Interval events: Continues to have decreased vision in the left eye
Objective Data
-
Labs:
Laboratory Results
02/04/24
08:13
WBC 12.7 H
Hgb 10.6 L
Hct 32.1 L
Plt Count 424 H
Sodium 140
Potassium 4.6
Chloride 105
Carbon Dioxide 20 L
BUN 18 H
Creatinine 0.8
Glucose 179 H
Calcium 9.9
Vital Signs:
Vital Signs
Temp Pulse Resp BP Pulse Ox
97.2 F 92 20 148/59 93
02/04/24 13:10 02/04/24 13:10 02/04/24 13:10 02/04/24 13:10 02/04/24 13:10
Review of Systems
-
History Source: Patient
Constitutional: Denies Sleep Disturbance, Night Sweats or Weakness
EENT: Reports Decreased Vision (Left eye); Denies Hearing Loss
Respiratory: Reports No Symptoms
Cardiac: Reports No Symptoms
Abdomen/GI: Reports No Symptoms
Musculoskeletal: Reports No Symptoms
Neuro: Denies Dizzy, Headache, Weakness, Numbness, Ataxia, Tremors or Lightheadedness
Physical Exam
-
General: Well Developed, Well Nourished and No Apparent Distress
HEENT: No Ptosis, PERRLA and Other (Eyes: Negative. Negative for photophobia and pain. Able to identify light and colors.)
Respiratory: Clear to Auscultation
Cardiac: Regular Rhythm and S1/S2
GI: Soft and Nontender
Skin: Warm and Dry
Neuro: Awake, Alert, Oriented, No Motor Deficits and No Sensory Deficits; Negative Tremors, Slurred Speech or Facial Droop
Psych: Calm
Data Reviewed
-
CT Scan: Report Reviewed by me, Discussed with Physician and Discussed with Patient
MRI: Report Reviewed by me and Discussed with Physician
Labs: Labs Reviewed by me, Discussed with Physician and Discussed with Patient
--- NOTE | 2024-02-04 15:08 | CM ---
Patient seen at bedside with physicians. Patient states that she lives with her also in the room and daughter was present. Patient home is a 2 story home and prior to admission patient was independent of adl's and IADL's. Patient has a
walker and cane at home but does not use them. Patient PCP is Dr. Yoandy Knowles and she uses the [facility] in [place]. Patient for further testing today. Patient with vision impaired at this time. CM will continue to follow for discharge planning needs.
Plan; home with VN vs SNF pending completed medical testing.
--- NOTE | 2024-02-04 15:35 | W.SUR.PREOP ---
Pre-Operative Surgical Note
-
I have examined this patient prior to the performance of the scheduled procedure.
The patient's condition is unchanged from the time of the current History and
Physical and the patient is able to undergo the scheduled procedure.
--- NOTE | 2024-02-04 16:48 | OR.RPT ---
Operative Report
Operative Report
Date of Operation: 02/04/2024
Pre Op Diagnosis: Concern for temporal arteritis
Post Op Diagnosis: Concern for temporal arteritis
Procedure: LEFT temporal artery biopsy
Surgeon: Grover Quezada III, MD
Director Of Retail Operations: Tuan Rae MD PhD, PGY2
Anesthesia: Sedation/local
Complications: None
Estimated Blood Loss: Less than 20 cc
History and Indications for Procedure: 73-year-old female with presentation concerning for temporal arteritis. We were asked to provide a temporal artery biopsy.
Procedure in Detail: Pennie Sorto was correctly identified and placed supine on the operating table. After adequate induction of anesthesia the left temporal region was prepped and draped in the usual sterile fashion. She received preoperative
antibiotics. A timeout procedure was performed with the nursing and anesthesia staff confirming the patient's identity as well as nature and laterality of the procedure.
Local anesthesia was infiltrated into the skin and subcutaneous tissue over the temporal pulse. An incision was made over the left temporal pulse. Electrocautery and sharp dissection were used to dissect out a segment of temporal artery. The
proximal and distal ends of the artery were ligated with 4-0 silk ties. The intervening segment was transected and removed. The specimen was passed off to the back table to be sent to pathology. Hemostasis was achieved in the wound bed. The
wound was then irrigated. The wound was closed in layers and sterile skin glue was applied.
Patient tolerated the procedure well was taken to the recovery in good condition.
Attestation: I was present and responsible for the entire procedure
Signed:
Grover Quezada III, MD
[facility] Surgery
[phone] (cbel)
--- NOTE | 2024-02-04 17:08 | W.IMMPOSTOP ---
Surgical Immed Post Op Note
-
Primary Surgeon: Dr. Grover Quezada III, MD
Assisting Surgeon: Tuan Rae MD, PhD (PGY-2)
Pre-op Diagnosis: rule out left temporal arteritis
Post-op Diagnosis: rule out left temporal arteritis
Procedure Performed: left temporal artery biopsy
Anesthesia Type: Sedation
Specimen / Cultures: Left temporal artery
Estimated Blood Loss: Minimal
Complications: None
Operative Findings: The patient was brought to the OR and placed in the supine position and prepped and draped in usual sterile fashion. Local anesthetic was given. Incision was made over the site of the temporal artery. Electrocautery was used to
dissect the subcutaneous tissue. Sharp dissection was then used to dissect and expose the left temporal artery. A 4-0 silk was used to ligate the artery distally and proximally and a 2cm segment of vessel was sent to the laboratory. Hemostasis was
achieved, the wound bed was irrigated. The wound was closed with 3-0, 4-0 suture and skin glue at the surface. The patient was transported to the PACU in stable condition.
[2024-02-04] MEDS: ZESTRIL 20 MG PO (18:10)
[2024-02-04] MEDS: LIPITOR 40 MG PO (18:10)
[2024-02-04] MEDS: SOLU-MEDROL 258 MG IV (20:45)
[2024-02-05 03:32] VITALS: BP 149/91
[2024-02-05 07:30] VITALS: BP 148/67
[2024-02-05 08:13] LABS: % Basophils 0.3 % (0-2); % Eosinophils 0.2 % (0-6); % Immature Granulocytes 2.7 % (0-0.5); % Lymphocytes 5.3 % (20.5-51.1); % Monocytes 2.7 % (1.7-9.3); % Neutrophils 88.8 % (42.2-75.2); Absolute Basophils 0.1 10^3/uL (0-0.2); Absolute Immature Granulocytes 0.5 10^3/uL (0-0.05); Absolute Monocytes 0.5 10^3/uL (0.1-0.6); Hematocrit 29.1 % (37.0-47.0); Hemoglobin 9.7 g/dL (12.0-16.0); Mean Corp Hgb Conc. 33.3 g/dL (33.0-37.0); Mean Corpuscular Hgb 29.8 pg (27.0-31.0); Mean Corpuscular Volume 89.5 fL (81.0-99.0); Mean Platelet Volume 11.2 fL (7.4-10.4); Nucleated Red Blood Cells % 0.2 %; Platelet Count 382 10^3/uL (130-400); Red Blood Cell Count 3.25 10^6/uL (4.20-5.40); Red Cell Dist. Width 16.3 % (11.5-14.5)
--- NOTE | 2024-02-05 08:14 | W.PN.VS ---
Today's Communication / Plan
-
See below.
Assessment/Plan
-
Assessment: 73 year old female presents with acute left eye vision loss with concern for giant cell arteries, POD #1 left temporal artery biopsy
Plan:
Can follow-up in outpatient setting for incision check, appointment left in discharge instructions
We will sign off please call with questions or concerns
Subjective Data
-
Date of Service: February 05, 2024
Patient seen and evaluated bedside, offers no complaints. Does endorse no improvement to left eye vision loss. Denies headache or pain over left temporal artery biopsy site.
Objective Data
-
Vital Signs
Temp Pulse Resp BP Pulse Ox
98.2 F 104 18 149/91 96
02/05/24 03:32 02/05/24 03:32 02/05/24 03:32 02/05/24 03:32 02/05/24 03:32
Intake and Output
02/04/24 02/05/24 02/06/24
06:59 06:59 06:59
Intake Total 480 / 480
Balance 480 / 480
Intake:
Oral fluids 480 / 480
Other:
Number of approximated MODERATE 2 2
amounts of urine
Lab Results
02/05/24 07:15
Calcium 9.9 mg/dl (8.4-10.2) 02/04/24 08:13
Total Bilirubin 0.7 mg/dl (0.2-1.3) 02/03/24 13:03
AST 45 U/L (14-36) H 02/03/24 13:03
ALT 20 U/L (0-35) 02/03/24 13:03
Alkaline Phosphatase 124 U/L (38-126) 02/03/24 13:03
Total Protein 8.2 g/dl (6.3-8.2) 02/03/24 13:03
Albumin 4.8 g/dl (3.5-5.0) 02/03/24 13:03
Physical Exam
-
No apparent distress, resting in bed comfortably
No tachycardia
No dyspnea on room air
Left temporal artery biopsy site, CDI, Exofin glue intact, no erythema or swelling
[2024-02-05] MEDS: EFFEXOR XR 75 MG PO (08:28)
[2024-02-05] MEDS: ZETIA 10 MG PO (08:28)
[2024-02-05] MEDS: ASPIR LOW (ENTERIC COATED) 81 MG PO (08:28)
[2024-02-05] MEDS: ZESTRIL 20 MG PO (08:28)
--- NOTE | 2024-02-05 09:34 | W.PN.CD ---
Today's Communication / Plan
-
Await carotid biopsy
If biopsy negative Dr. Cruz has recommended a NICHO and if NICHO is negative then an insertable loop implant.
Pt thinks biopsy will be available end of the week
She will contact Dr. Crzu at the office to let her know results and schedule NICHO/possible loop implant
Agree with adding statin for better lipid control
On Steroids and ASA
On BP meds
Cardiology will sign off
Impression / Plan
-
Background: 73F with HTN, HLD, statin intolerance presented with loss of vision from left eye
Primary repairer and checker: Dr. Cruz
Left eye vision loss
-Retinal artery occlusion versus giant cell arteritis
-ESR 50, CRP 6.30
-MRI/A negative
-Temporal A biopsy path PENDING
Ectopic atrial rhythm, denies palpitations
- No AFib seen here
HTN
-Lisinopril on hold by primary service for mild hyperkalemia, BMP pending
Dyslipidemia
-Lipid panel: TC 210, LDL 129, HDL 39, TG 211
-Intolerant to simvastatin, atorvastatin, and rosuvastatin (all cause myalgia)
-Continue Zetia
Subjective:
Denies palpitations. No atrial fibrillation on telemetry. Some peripheral vision left eye today
DATA:
Transthoracic echocardiogram, 02/03/2024:
CONCLUSIONS
Normal left ventricular size, wall thickness and systolic function. No regional
wall motion abnormalities are seen. LV ejection fraction is 60% .
Mild tricuspid regurgitation.
Mild pulmonic regurgitation.
Trivial pericardial effusion.
Compared to previous echo 08/13/23 there is now a trivial pericardial effusion.
Physical Exam
Vital Signs/Labs
Vital Signs
Temp Pulse Resp BP Pulse Ox
97.9 F 85 20 148/67 97
02/05/24 07:30 02/05/24 07:30 02/05/24 07:30 02/05/24 07:30 02/05/24 08:00
02/04/24 02/05/24 02/06/24
06:59 06:59 06:59
Actual Weight 79.095 kg
02/05/24 07:15
Triglycerides 211 mg/dl (10-149) H 02/03/24 15:18
LDL Cholesterol, Calc 129 mg/dl 02/03/24 15:18
VLDL Cholesterol, Calc 42 mg/dl (0-30) H 02/03/24 15:18
HDL Cholesterol 39 mg/dl 02/03/24 15:18
Physical Exam
Constitutional: No acute distress
EENT: Anicteric
Cardiovascular: Rhythm & rate is regular and Pedal edema is absent
Respiratory: Respiratory effort normal and Lungs clear to auscul.
GI: Soft and Distention absent
Neuro/Psych: AO x 3 and Other (she reports some peripheral vision in the left eye)
Data Reviewed
-
Date of Service: February 05, 2024
[2024-02-05 09:51] LABS: Blood Urea Nitrogen 28 mg/dl (7-17); Calcium 9.2 mg/dl (8.4-10.2); Carbon Dioxide 20 mmol/L (22-30); Chloride 106 mmol/L (98-107); Estimated Creatinine Clearance 59 ml/min; Glucose 183 mg/dl (70-99); Magnesium 2.2 mg/dl (1.6-2.3); Potassium 4.7 mmol/L (3.5-5.1); Sodium 141 mmol/L (135-145); eGFR > 60.00
[2024-02-05 11:56] VITALS: BP 126/59
--- NOTE | 2024-02-05 12:30 | W.PN.NEURO.1 ---
Today's Communication / Plan
-
.
Subjective/Objective
Subjective Data
Date of Service: February 05, 2024
Ms. Sorto reports no improvement in vision.
Brain MRI wo ileana�no acute infarcts, subcortical signal abnormalities and atrophy.
CTA head/neck-no evidence of significant intra and extracranial stenosis.
TTE(02/03/2024) unremarkable
PMH: HTN, DLP, osteopenia, OA, vitamin D deficiency, ILEANA, eczema, hepatic steatosis. nephrolithiasis
PSH: Temporal artery biopsy (02/04/2024), L TKA, tubal ligation, tonsillectomy, IAN, Ureteral stent.
SH: nonsmoker; ; social ETOH use
FH: pancreatic cancer
All: statins
ROS:Constitutional: Negative. Negative for chills, fever and unexpected weight change.
HENT: Positive for neck visual
Eyes: Negative. Negative for photophobia, pain and visual disturbance.
Respiratory: Negative for cough, choking and shortness of breath.
Cardiovascular: Negative for chest pain, palpitations and leg swelling.
Gastrointestinal: Negative for abdominal pain and vomiting.
Endocrine: Negative. Negative for cold intolerance.
Genitourinary: Negative for dysuria, flank pain and urgency.
Musculoskeletal: Negative for back pain, gait problem, neck pain and neck stiffness.
Skin: Negative for rash.
Allergic/Immunologic: Negative. Negative for immunocompromised state.
Neurological: Negative for dizziness, tremors, seizures, speech difficulty, numbness and headaches.
Psychiatric/Behavioral: Negative for behavioral problems, confusion and hallucinations.
General: Well developed. In no acute distress.
Cardio: Regular rate and rhythm without murmur. Extremities are without cyanosis or edema.
Neuro:
Mental Status: Alert, oriented to person, place, and date. Normal attention and recall. Good fund of knowledge. Follows complex requests across the midline. Comprehension, naming, and repetition intact.
Cranial Nerves: OS-no light perception. Pupils are equally round and reactive to light. EOMs full. Visual andrew full to confrontation on the R. No ptosis. No nystagmus. V1-V3 intact to light touch and pinprick bilaterally, symmetric. Face
symmetric. Normal hearing AU. The palate elevated well. SCMs and traps 5/5. Tongue midline. No dysarthria.
Motor: Normal bulk and tone. No pronator or arm drift. Strength 5/5 throughout. No clonus.
Coordination: No dysmetria or tremor.
Gait: deferred
Assessment and Plan:
I. 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
II. Hilar lymphadenopathy.
III. DLP
-Continue Telemetry monitoring.
-Continue ASA 81 mg QD indefinitely.
-Lipitor 40 mg QHS.
-Please follow-up HERMAN level, temporal artery biopsy result
-Ophthalmology, rheumatology follow-up
-OP Holter, ILR
-Outpatient neurology follow-up in 2-4-weeks.
I personally reviewed all radiology and labs along with past medical records pertinent to current medical problems. Total time spent in patient care is 35 minutes.
Thank you for allowing us to participate in the care of this patient. Please do not hesitate to contact us with any questions or concerns.
Objective Data
Vital Signs
Temp Pulse Resp BP Pulse Ox
36.6 C 81 16 126/59 98
02/05/24 11:56 02/05/24 11:56 02/05/24 11:56 02/05/24 11:56 02/05/24 11:56
Lab Results
02/05/24 07:15
02/05/24 07:15
Sodium 141 mmol/L (135-145) 02/05/24 07:15
Potassium 4.7 mmol/L (3.5-5.1) 02/05/24 07:15
BUN 28 mg/dl (7-17) H 02/05/24 07:15
Glucose 183 mg/dl (70-99) H 02/05/24 07:15
Calcium 9.2 mg/dl (8.4-10.2) 02/05/24 07:15
LDL Cholesterol, Calc 129 mg/dl 02/03/24 15:18
Patient Allergies
No Known Allergies Allergy (Verified 02/03/24 12:26)
Vital Signs and Labs
-
Vital Signs and Labs:
Vital Signs
Temp Pulse Resp BP Pulse Ox
36.6 C 81 16 126/59 98
02/05/24 11:56 02/05/24 11:56 02/05/24 11:56 02/05/24 11:56 02/05/24 11:56
Lab Results
02/05/24 07:15
02/05/24 07:15
Sodium 141 mmol/L (135-145) 02/05/24 07:15
Potassium 4.7 mmol/L (3.5-5.1) 02/05/24 07:15
BUN 28 mg/dl (7-17) H 02/05/24 07:15
Glucose 183 mg/dl (70-99) H 02/05/24 07:15
Calcium 9.2 mg/dl (8.4-10.2) 02/05/24 07:15
LDL Cholesterol, Calc 129 mg/dl 02/03/24 15:18
Medications
-
Medications:
Generic Name Dose Route Start Last Admin
Trade Name Freq PRN Reason Stop Dose Admin
Acetaminophen 650 mg 02/03/24 20:22
Acetaminophen 650 Mg Rectal Suppository RECTAL 03/02/24 20:21
Q4HPRN PRN
ROSENBERG, mild pain, or temp >100.4F
Acetaminophen 650 mg 02/03/24 20:22
Acetaminophen 325 Mg Tablet PO 03/02/24 20:21
Q4HPRN PRN
ROSENBERG, mild pain, or temp >100.4F
Aspirin 81 mg 02/03/24 15:00 02/05/24 08:28
Aspirin 81 Mg (Enteric Coated) Tablet PO 03/02/24 14:59 81 mg
DAILY CECILIA Administration
Atorvastatin Calcium 40 mg 02/04/24 18:00 02/04/24 18:10
Atorvastatin (Lipitor) 40 Mg Tablet PO 03/03/24 17:59 40 mg
QPM CECILIA Administration
Ezetimibe 10 mg 02/04/24 08:00 02/05/24 08:28
Ezetimibe (Zetia) 10 Mg Tablet PO 03/03/24 07:59 10 mg
DAILY CECILIA Administration
Methylprednisolone Sodium 258 mls @ 258 mls/hr 02/03/24 21:00 02/04/24 20:45
Succinate 1,000 mg/ Sodium IV 02/05/24 21:59 258 mls
Chloride Q24H CECILIA Administration
Lisinopril 20 mg 02/04/24 16:00 02/05/24 08:28
Lisinopril 20 Mg Tablet PO 03/03/24 15:59 20 mg
DAILY CECILIA Administration
Oxycodone HCl 5 mg 02/04/24 16:26
Oxycodone 5 Mg Regular Release Tablet PO 02/18/24 16:25
Q4HPRN PRN
moderate pain
Sodium Chloride 0 flush 02/03/24 21:00
Sodium Chloride 0.9% (Flush) Syringe IV 03/02/24 20:59
PER PROTOCOL CECILIA
Venlafaxine HCl 75 mg 02/04/24 08:00 02/05/24 08:28
Venlafaxine 75 Mg Extended Release Capsule PO 03/03/24 07:59 75 mg
DAILY CECILIA Administration
Home Medications
-
Home Medications
lisinopril 20 mg tablet 20 mg PO DAILY Blood Pressure 11/21/07
cholecalciferol (vitamin D3) 50 mcg (2,000 unit) capsule (Vitamin D3) 2,000 unit PO DAILY Supplement 09/11/16
Lactobacillus acidophilus 10 billion cell capsule (Probiotic) 10,000 mmu cells PO DAILY probiotic 02/03/24
aspirin 81 mg tablet,delayed release 81 mg PO DAILY Blood Clot Prevention/Tx 02/03/24
ezetimibe 10 mg tablet 10 mg PO DAILY High Cholesterol 02/03/24
venlafaxine 75 mg capsule,extended release 24 hr 75 mg PO DAILY depression/anxiety 02/03/24
--- NOTE | 2024-02-05 13:35 | W.PN.HOSP.TC ---
Addendum entered and electronically signed by Guerline Smith MD 02/05/24 19:11:
I saw and evaluated the patient independently. I reviewed the resident�s note and agree with findings and plan as documented by Dr. Andrade.
GENERAL: well developed, well nourished, female in no apparent distress
HEENT: NC/AT
HEART: regular rate and rhythm, +S1, +S2
LUNGS : clear to auscultation bilaterally
ABDOM: soft, nontender, nondistended, + bowel sounds
EXT: no cyanosis, clubbing, or edema
NEUROLOGIC: grossly intact with exception of vision
Acute Left eye vision loss--woke up with it--central retinal artery occlusion, GCA both possible but GCA less likely--apprec Ophtho, neuro, vascular--MRI brain without acute issues--Echo unremarkable--ESR elevated but not specific--s/p temporal
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
loss--Often seen with ALVINO
Hilar lymphadenopathy noted on head CT--- CT chest shows multiple small bilateral pulmonary nodules--apprec pulm,, for outpt follow up--HERMAN level pending--sarcoidosis in differential
Thrombocytosis--Likely reactive to inflammation--Continue to monitor
Mild hyperkalemia--resolved on BMP today, resume lisinopril
Dyslipidemia---Lipid panel: TC 210, LDL 129, HDL 39, TG 211--Continue Zetia--Start atorvastatin 40 mg at bedtime per neuro
DVT proph
code status--FULL CODE
ok for d/c
Original Note:
Today's Communication/Plan
-
Discharge home today on oral steroids
Follow-up with vascular outpatient for incision check and after biopsy results
Assessment / Plan
Assessment / Plan
73-year-old female past medical history of cataracts, hypertension, anxiety/depression, osteoarthritis, osteoporosis, gallstones, ureteral calculi status post stenting, obesity presented with acute painless vision loss in the left eye.
# Acute left eye vision loss
-Differentials include central retinal artery occlusion versus giant cell arthritis
-CT head and MRI brain unremarkable( No radiographic evidence of optic neuritis)
-ESR 50, CRP 6.3
-Echo unremarkable-normal biventricular systolic function, no significant valve disease
-Appreciate cardiology input-recommended PCSK9 inhibitor
-Continue high-dose steroids
-Temporal artery biopsy performed today; pending results
-If biopsy negative Dr. Cruz(warehouse inventory clerk) recommended a NICHO
-If NICHO is negative then an insertable loop implant
-Patient aware and will contact Dr. Cruz after biopsy result
# Hilar lymphadenopathy noted on head CT
-CT chest:numerous bilateral pulmonary nodules. The largest measures 11 mm within the right lower lobe. Findings may be infectious/inflammatory in nature however malignancy or metastasis could appear similar. Recommend correlation with prior images
available. If none are available recommend short interval follow-up CT.
- Mildly prominent mediastinal and hilar lymph nodes which appear slightly decreased in size recent prior CTA and are likely reactive in nature.
-HERMAN level pending
# Thrombocytosis
-Likely reactive to inflammation
-Resolved
# Mild hyperkalemia
-resolved
-Continue lisinopril
# Dyslipidemia
-Lipid panel: TC 210, LDL 129, HDL 39, TG 211
-Continue Zetia
-Continue atorvastatin 40 mg at bedtime per neuro
Full code
Anticipated Discharge: Today
Subjective/Interval History
-
Date of Service: February 05, 2024
Interval events: Continues to have decreased vision in the left eye
Objective Data
-
Labs:
Laboratory Results
02/05/24
07:15
WBC 18.0 H
Hgb 9.7 L
Hct 29.1 L
Plt Count 382
Sodium 141
Potassium 4.7
Chloride 106
Carbon Dioxide 20 L
BUN 28 H
Creatinine 0.9
Glucose 183 H
Calcium 9.2
Vital Signs:
Vital Signs
Temp Pulse Resp BP Pulse Ox
97.9 F 81 16 126/59 98
02/05/24 11:56 02/05/24 11:56 02/05/24 11:56 02/05/24 11:56 02/05/24 11:56
I&O
02/04/24 02/05/24 02/06/24
06:59 06:59 06:59
Intake Total 480 / 480
Balance 480 / 480
Review of Systems
-
History Source: Patient
Constitutional: Denies Sleep Disturbance, Night Sweats or Weakness
EENT: Reports Decreased Vision (Left eye); Denies Hearing Loss
Respiratory: Reports No Symptoms
Cardiac: Reports No Symptoms
Abdomen/GI: Reports No Symptoms
Musculoskeletal: Reports No Symptoms
Neuro: Denies Dizzy, Headache, Weakness, Numbness, Ataxia, Tremors or Lightheadedness
Physical Exam
-
General: Well Developed, Well Nourished and No Apparent Distress
HEENT: No Ptosis, PERRLA and Other (Eyes: Negative for photophobia and pain. Able to identify light and colors.)
Respiratory: Clear to Auscultation
Cardiac: Regular Rhythm and S1/S2
GI: Soft and Nontender
Skin: Warm and Dry
Neuro: Awake, Alert, Oriented, No Motor Deficits and No Sensory Deficits; Negative Tremors, Slurred Speech or Facial Droop
Psych: Calm
Data Reviewed
-
CT Scan: Report Reviewed by me, Discussed with Physician and Discussed with Patient
Labs: Labs Reviewed by me, Discussed with Physician and Discussed with Patient
--- NOTE | 2024-02-05 14:37 | CM ---
Patient seen at bedside. Patient plan is for discharge home pending MRI today. Patient family to transport and IMM completed and placed on chart. Patient plan is to follow up with her physicians. CM will continue to follow for discharge planning
needs.
Plan; home with no needs anticipated and follow up with PCP/specialist
[2024-02-05 15:00] VITALS: BP 136/61
--- NOTE | 2024-02-05 15:29 | CON.PUL ---
Consultation
Consultation Request
Date/Time Consultation Requested: 02/05/24
Date/Time Consultation Performed: 02/05/24
Performing Provider: Minerva
Reason for Consultation: Abnl CT
Medical History
-
History of Present Illness:
Patient is a 73-year-old female with previous history of hypertension, hyperlipidemia presenting with acute unilateral vision loss. This notably occurred upon awakening at 3 AM, which was persistent despite several hours of observation. She denies
any focal numbness, tingling or weakness. She has no other accompanying symptoms. She has been evaluated for possible acute stroke versus GCA and underwent left temporal artery biopsy on 02/04/2024.
Upon workup with serial imaging, she was noted to have pulmonary nodules. Underwent dedicated CT chest showing multiple nodules, largest measuring 11 mm.
She denies history of lung disease, denies family history. Never had nodules in past. Lifelong nonsmoker.
Does admit to snoring, EDS and frequent awakenings. Never had a sleep study.
Past Medical History
Past Medical History: Other (see list below)
Social History
Tobacco: Non-smoker
Alcohol: None
Drug: None
Family History
Family History: Reviewed & Not Pertinent
Allergies / Home Medications
Allergies
Allergy/AdvReac Type Severity Reaction Status Date / Time
No Known Allergies Allergy Verified 02/03/24 12:26
Home Medications
�Medication �Instructions �Recorded �Confirmed �Last Taken �Type
lisinopril 20 mg tablet 20 mg PO DAILY Blood Pressure 11/21/07 02/03/24 02/03/24 History
cholecalciferol (vitamin D3) 50 2,000 unit PO DAILY Supplement 09/11/16 02/03/24 02/03/24 History
mcg (2,000 unit) capsule (Vitamin
D3)
Lactobacillus acidophilus 10 10,000 mmu cells PO DAILY probiotic 02/03/24 02/03/24 02/03/24 History
billion cell capsule (Probiotic)
aspirin 81 mg tablet,delayed 81 mg PO DAILY Blood Clot 02/03/24 02/03/24 02/03/24 History
release Prevention/Tx
ezetimibe 10 mg tablet 10 mg PO DAILY High Cholesterol 02/03/24 02/03/24 02/03/24 History
venlafaxine 75 mg capsule,extended 75 mg PO DAILY depression/anxiety 02/03/24 02/03/24 02/03/24 History
release 24 hr
Review of Systems
-
History Source: Patient
All other systems: Negative unless noted
Vitals / Labs / Diagnostic Testing
Vital Signs
Temp Pulse Resp BP Pulse Ox
98.9 F 81 16 136/61 96
02/05/24 15:00 02/05/24 15:00 02/05/24 15:00 02/05/24 15:00 02/05/24 15:00
Lab Data
02/05/24 07:15
02/05/24 07:15
Diagnostic Testing:
Physical Exam
-
HEENT: Normocephalic, Anicteric and Moist Mucous Membranes
Cardiovascular: S1/S2 and Regular Rhythm
Respiratory: Clear and Non-Labored Respirations
GI: Soft, Non Distended and Non Tender
Neurology: Awake, Alert, Oriented and No Motor Deficits
Skin: Warm, Dry and Good Color
General: Comfortable and Other (NAD)
Assessment
-
Patient is a 73-year-old female with previous history of hypertension, hyperlipidemia presenting with acute unilateral vision loss. This notably occurred upon awakening at 3 AM, which was persistent despite several hours of observation. She denies
any focal numbness, tingling or weakness. She has no other accompanying symptoms. She has been evaluated for possible acute stroke versus GCA and underwent left temporal artery biopsy on 02/04/2024. We are consulted for incidental pulmonary
nodules, 02/05/24.
Incidental pulmonary nodules
Unilateral vision loss, s/p temp arterial biopsy 02/04/24
Suspect possible ANION
Snoring, EDS
Strong family history of sleep apnea
Conditions present [employer]
Essential Hypertension
Anxiety
Thrombocytosis
Hysterectomy(2005)
Tubal ligation(1981)
Tonsillectomy
LTKA 10/03/16
Plan
No oxygen was needed on admission, currently saturating >90% on RA
Prior history of lung disease is NOT noted
She denies history of lung disease, denies family history. Never had nodules in past. Lifelong nonsmoker.
Upon workup with serial imaging, she was noted to have pulmonary nodules.
Underwent dedicated CT chest showing multiple nodules, largest measuring 11 mm.
She is considered low risk, would favor reimaging as OP to follow
We can arrange her follow up
Unilateral vision loss noted
She is ruled out for acute CVA, optic neuritis
s/p temp art bx for GCA r/o, path pending
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
Often seen with ALVINO
Other ocular manifestations of sleep apnea include floppy eyelid syndrome, glaucoma
Agree with Ophtho eval as OP, has appt saturday to confirm findings
Does admit to snoring, EDS and frequent awakenings. Never had a sleep study.
We will arrange for OP testing
ECHO results reviewed--normal function, mild TR PAP 25-30
Daughter has history of PAH
Mild PH can be seen with [facility]
Will need outpatient pulmonary evaluation in our office for PFTs and 6MWT
Reviewed with patient
Risk factors assessed for underlying sleep disordered breathing also noted, recommend outpatient PSG/sleep evaluation
Otherwise can proceed with discharge planning per team
Discussed all care wtih patient and family at bedside, all questions answered
Diagnostic Data
Chest X-Ray: 10/26/20-No radiographic evidence of acute cardiopulmonary abnormality.
CT Scan: 02/05/24- 1. There are numerous bilateral pulmonary nodules. The largest measures 11 mm within the right lower lobe. Findings may be infectious/inflammatory in nature however malignancy or metastasis could appear similar. Recommend
correlation with prior images available. If none are available recommend short interval follow-up CT.
2. Mildly prominent mediastinal and hilar lymph nodes which appear slightly decreased in size recent prior CTA and are likely reactive in nature.
Echo: 02/03/24- Normal left ventricular size, wall thickness and systolic function. No regional wall motion abnormalities are seen. LV ejection fraction is 60% . Mild tricuspid regurgitation. Mild pulmonic regurgitation. Trivial pericardial
effusion. Compared to previous echo 08/13/23 there is now a trivial pericardial effusion.
08/13/23- Normal biventricular size and systolic function without regional wall motion abnormality. Normal diastolic function. No significant valvular disease. No prior study available for comparison.
PFT's:
Reports and relevant images were personally reviewed.
Total time spent on this consultation __75__ includes review of history, physical exam, medications, laboratory data, personal review of imaging, extensive review of outpatient records, discussion with care team and respiratory therapy.
[2024-02-05] MEDS: LIPITOR 40 MG PO (17:09)
[2024-02-05 17:58] LABS: Angiotensin-1-converting Enzym <10 U/L (16-85)
--- NOTE | 2024-02-05 19:28 | W.DCSUMMARY ---
Addendum entered and electronically signed by Guerline Smith MD 02/05/24 21:23:
Read, reviewed, and agree. See same day progress note for additional details. Time spent coordinating care, DC planning, review of DC plan of care with resident, transition of care, review of records in EMR, med rec, consults, notes, d/w
consultants, nursing, family, and CM = 34 minutes
Original Note:
Discharge Summary
Discharge Data
Date of Admission: 02/03/24
Date of Discharge: 02/05/24
Total time spent discharging patient (in min): 34
-
Pending Results: No
Hospital Course
Discharging Physician : Piero Andrade MD ; Guerline Smith MD
Disposition : Home
Primary care physician : unknown
Principal Discharge diagnosis : Acute left eye vision loss
Other Discharge diagnosis : hilar lymphadenopathy noted on head CT, thrombocytosis, mild hyperkalemia, dyslipidemia
Hospital Course : 73-year-old female past medical history of cataracts, hypertension, anxiety/depression, osteoarthritis, osteoporosis, gallstones, ureteral calculi status post stenting, obesity presented with acute painless vision loss in the left
eye. Differentials include central retinal artery occlusion versus giant cell arthritis. CT head and MRI brain unremarkable( No radiographic evidence of optic neuritis. ESR 50, CRP 6.3. Echo unremarkable-normal biventricular systolic function, no
significant valve disease. Lipid panel: TC 210, LDL 129, HDL 39, TG 211 started atorvastatin 40 mg at bedtime in addition to zetia per neuro. Hilar LAD noted on CT head and Ct chest confimed multiple pulmonary nodules. Pulmonology was consulted and
she will fu with pulm OP for routine repeat imaging. Temporal artery biopsy performed: pending results. If biopsy negative Dr. Cruz(automobile assembler) recommended a NICHO. If NICHO is negative then an insertable loop implant. Patient aware and will
contact Dr. Cruz after biopsy result. She was discharged on prednisone 60mg daily dose until biopsy result or fu with vascular.
Important imaging findings : Exams: CT Head & Neck Angio W/wo IV
IMPRESSION: No significant vascular occlusion, aneurysm or dissection.
Partially visualized mediastinal and bilateral hilar lymphadenopathy. Findings may be reactive or neoplastic in etiology. Consider outpatient workup with dedicated contrast-enhanced CT chest.
Brain MRI : No acute intracranial abnormality noted.
Sequelae of moderate small vessel ischemic disease with mild atrophy
CT Chest:
IMPRESSION:
1. There are numerous bilateral pulmonary nodules. The largest measures 11 mm within the right lower lobe. Findings may be infectious/inflammatory in nature however malignancy or metastasis could appear similar. Recommend correlation with prior
images available. If none are available recommend short interval follow-up CT.
2. Mildly prominent mediastinal and hilar lymph nodes which appear slightly decreased in size recent prior CTA and are likely reactive in nature
Procedure findings : Temporal Artery biopsy: results pending
Discharge Plan
-
Patient Disposition: Home (Routine Discharge)
Discharge Diagnosis/Procedures: Acute left eye vision loss, hilar lymphadenopathy noted on head CT, thrombocytosis, mild hyperkalemia, dyslipidemia
Condition: Good
Diet: Regular
Activity: No restrictions and As tolerated
Driving Restrictions: No driving
Bathing Restrictions: None
Stand Alone Forms: DC Instr - Vascular OR
Referrals:
Lupe Springer PA-C [Specified Professional Personl] - 02/18/24 10:15 am (Vascular follow up )
Cici Palma, [Active] - in three to four weeks (PFTs/sleep study)
UNKNOWN,PT [Family Provider] -
Additional Discharge Medication Instructions: Take prednisone 10 mg, 6 tablets(60 mg) every day until after the biopsy resolved and follow-up with vascular surgery.
Take atorvastatin 40 mg tablet every day.
Prescriptions:
New
atorvastatin 40 mg Tablet
40 mg PO QPM Qty: 30 0RF
prednisone 10 mg tablet
10 mg PO DIRECTED Qty: 100 0RF
Rx Instructions:
Take 6 tablets(60mg) everyday.
Continued
lisinopril 20 MG tablet
20 mg PO DAILY
cholecalciferol (vitamin D3) [Vitamin D3] 2,000 UNIT capsule
2,000 unit PO DAILY
venlafaxine 75 mg capsule,extended release 24hr
75 mg PO DAILY
aspirin 81 mg Tablet,Delayed Release (Dr/Ec)
81 mg PO DAILY
ezetimibe 10 mg tablet
10 mg PO DAILY
Probiotic 10 billion cell Capsule
10,000 mmu cells PO DAILY
Discharge Orders:
Discharge Patient (As Directed); Ordered 02/05/24
Ordered By: Piero Andrade
Discharge Date and Time
Discharge Date/Time: 02/05/24 19:12
Print Language: CZECH
== END 2024-02-05 19:12 | disposition home or self-care (01) | DRG 516 ==
LOC: 4 WEST ACU 18:44
PROVIDERS: Physician Assistant Medical; ADMITTING PHYSICIAN Hospitalist; ATTENDING PHYSICIAN Internal Medicine; CONSULT PHYSICIAN Internal Medicine; CONSULT PHYSICIAN Psychiatry & Neurology Neurology; EMERGENCY PHYSICIAN Emergency Medicine; OTHER PHYSICIAN Internal Medicine Cardiovascular Disease; OTHER PHYSICIAN Surgery Vascular Surgery
PROC: 03BT0ZX Excision of Left Temporal Artery, Open Approach, Diagnostic (ICD-10-PCS; 2024-02-04)
DX: M31.6 Other giant cell arteritis (principal); H34.12 Central retinal artery occlusion, left eye; H54.62 Unqualified visual loss, left eye, normal vision right eye; E87.5 Hyperkalemia; E78.49 Other hyperlipidemia; D75.839 Thrombocytosis, unspecified; R59.0 Localized enlarged lymph nodes; E78.00 Pure hypercholesterolemia, unspecified; I10 Essential (primary) hypertension; M19.90 Unspecified osteoarthritis, unspecified site; M81.0 Age-related osteoporosis without current pathological fracture; Z87.442 Personal history of urinary calculi; F32.A Depression, unspecified; F41.9 Anxiety disorder, unspecified; H26.9 Unspecified cataract; E66.9 Obesity, unspecified; R91.8 Other nonspecific abnormal finding of lung field; Z79.82 Long term (current) use of aspirin; Z80.0 Family history of malignant neoplasm of digestive organs; E55.9 Vitamin D deficiency, unspecified; Z96.652 Presence of left artificial knee joint; L30.9 Dermatitis, unspecified; D64.9 Anemia, unspecified; R68.84 Jaw pain; Z90.710 Acquired absence of both cervix and uterus; Z79.899 Other long term (current) drug therapy
CPT/HCPCS: 88305; 37609; 70496; 70498; 70551; 71260; 80048; 80053; 80061; 82164; 83036; 83735; 85025; 85027; 85652; 86140; 88313; 93005; 93306; 97161; 97165; 99291; Q9967

== ENCOUNTER → 2024-03-10 06:52 | Day surgery (SDC) | payer OTHER, SELFPAY ==
[2024-03-10 07:35] VITALS: BMI 28.3
== END ==
LOC: CATH 06:52
PROVIDERS: ATTENDING PHYSICIAN Student in an Organized Health Care Education/Training Program; FAMILY PHYSICIAN Family Medicine; OTHER PHYSICIAN Internal Medicine Cardiovascular Disease
DX: I08.3 Combined rheumatic disorders of mitral, aortic and tricuspid valves (principal); I31.39 Other pericardial effusion (noninflammatory); I70.0 Atherosclerosis of aorta; I10 Essential (primary) hypertension
CPT/HCPCS: 93312; 93320; 93325

== ENCOUNTER → 2024-04-08 17:23 | Outpatient (REF) | payer OTHER, SELFPAY | LOC: PAVMRI 17:23 | PROVIDERS: ATTENDING PHYSICIAN Student in an Organized Health Care Education/Training Program; FAMILY PHYSICIAN Family Medicine | DX: M31.6 Other giant cell arteritis (principal) | CPT/HCPCS: 71555; A9585 ==

== ENCOUNTER → 2024-04-10 12:34 | Outpatient (REF) | payer OTHER, SELFPAY | LOC: HWRAD 12:34 | PROVIDERS: ATTENDING PHYSICIAN Nurse Practitioner Adult Health; FAMILY PHYSICIAN Family Medicine | DX: R91.8 Other nonspecific abnormal finding of lung field (principal) | CPT/HCPCS: 71250 ==

== ENCOUNTER 2024-04-27 06:04 | Day surgery (SDC) | payer OTHER, SELFPAY ==
[2024-04-20 09:02] LABS: INR 0.93; PT 12.7 Sec (11.4-14.6)
[2024-04-20 09:03] LABS: APTT 26.4 Sec (23.4-35.0)
[2024-04-20 09:22] LABS: Blood Urea Nitrogen 29 mg/dl (7-17); Calcium 9.9 mg/dl (8.4-10.2); Carbon Dioxide 27 mmol/L (22-30); Chloride 100 mmol/L (98-107); Glucose 86 mg/dl (70-99); Potassium 4.2 mmol/L (3.5-5.1); Sodium 138 mmol/L (135-145); eGFR 59.49
[2024-04-20 13:07] VITALS: BMI 26.8
[2024-04-27] VITALS (8 sets, daily range): BP systolic 119–189; BP diastolic 59–82; BMI 26.8
== END 2024-04-27 13:20 | disposition home or self-care (01) ==
LOC: SDS 06:04
PROVIDERS: ATTENDING PHYSICIAN Internal Medicine Critical Care Medicine; FAMILY PHYSICIAN Family Medicine
DX: R91.1 Solitary pulmonary nodule (principal); R59.0 Localized enlarged lymph nodes; R93.89 Abnormal findings on diagnostic imaging of other specified body structures; Z88.8 Allergy status to other drugs, medicaments and biological substances
CPT/HCPCS: 71045; 31623; 31645; 31628; 31624; 31629; 31653; 88172; 88173; 88305; 36415; 76000; 80048; 85610; 85730; 87070; 87102; 87116; 87205; 88112; 88333; 94640; C1887

== ENCOUNTER → 2024-06-18 10:35 | Outpatient (REF) | payer OTHER, SELFPAY | LOC: DHSLP 10:35 | PROVIDERS: ATTENDING PHYSICIAN Physician Assistant; FAMILY PHYSICIAN Family Medicine | DX: G47.33 Obstructive sleep apnea (adult) (pediatric) (principal) | CPT/HCPCS: 95800 ==

== ENCOUNTER → 2024-07-16 10:00 | Outpatient (REF) | payer OTHER, SELFPAY | LOC: PET 10:00 | PROVIDERS: ATTENDING PHYSICIAN Internal Medicine Critical Care Medicine | DX: R91.1 Solitary pulmonary nodule (principal) | CPT/HCPCS: 78815; A9552 ==

== ENCOUNTER → 2024-10-22 16:34 | Outpatient (REF) | payer OTHER, SELFPAY | LOC: RAD 16:34 | PROVIDERS: ATTENDING PHYSICIAN Thoracic Surgery (Cardiothoracic Vascular Surgery); FAMILY PHYSICIAN Family Medicine | DX: R59.0 Localized enlarged lymph nodes (principal) | CPT/HCPCS: 71275; Q9967 ==

== ENCOUNTER → 2024-12-23 09:31 | Outpatient (REF) | payer OTHER, SELFPAY | LOC: HWRAD 09:31 | PROVIDERS: ATTENDING PHYSICIAN Thoracic Surgery (Cardiothoracic Vascular Surgery); FAMILY PHYSICIAN Family Medicine; REFERRING PHYSICIAN Internal Medicine Critical Care Medicine | DX: R91.8 Other nonspecific abnormal finding of lung field (principal) | CPT/HCPCS: 71250 ==

== ENCOUNTER 2025-01-11 06:07 | Day surgery (SDC) | payer OTHER, SELFPAY ==
[2025-01-08 11:42] LABS: Hematocrit 29.2 % (37.0-47.0); Hemoglobin 9.3 g/dL (12.0-16.0); Mean Corp Hgb Conc. 31.8 g/dL (33.0-37.0); Mean Corpuscular Volume 91.5 fL (81.0-99.0); Platelet Count 405 10^3/uL (130-400); Red Cell Dist. Width 16.0 % (11.5-14.5)
[2025-01-08 11:48] LABS: INR 1.09; PT 14.4 Sec (11.4-14.6)
[2025-01-08 11:49] LABS: APTT 32.0 Sec (23.4-35.0)
[2025-01-08 12:03] LABS: Blood Urea Nitrogen 17 mg/dl (7-17); Calcium 9.4 mg/dl (8.4-10.2); Carbon Dioxide 28 mmol/L (22-30); Chloride 108 mmol/L (98-107); Glucose 90 mg/dl (70-99); Potassium 5.1 mmol/L (3.5-5.1); Sodium 141 mmol/L (135-145); eGFR > 60.00
[2025-01-08 14:09] VITALS: BMI 28.4
[2025-01-11] VITALS (9 sets, daily range): BP systolic 118–151; BP diastolic 59–84; BMI 28.4
[2025-01-11] MEDS: VENTOLIN NEBULES 2.5 MG INH (13:49)
[2025-01-12 07:07] LABS: Brochalveolar Lavage Color Red; Brochalveolar Lavage Volume 13 ml
[2025-01-12 07:08] LABS: Brochalveolar Lavage Character Bloody (Clear); Brochalveolar Lavage WBC 11000 cells/ml
== END 2025-01-11 18:25 | disposition home or self-care (01) ==
LOC: SDS 06:07
PROVIDERS: ATTENDING PHYSICIAN Internal Medicine Critical Care Medicine; FAMILY PHYSICIAN Family Medicine
DX: J98.4 Other disorders of lung (principal); R91.8 Other nonspecific abnormal finding of lung field; R59.0 Localized enlarged lymph nodes; R93.89 Abnormal findings on diagnostic imaging of other specified body structures
CPT/HCPCS: 31629; 36415; 71045; 76000; 80048; 85027; 85610; 85730; 86361; 87070; 87102; 87116; 87205; 88112; 88172; 88173; 88305; 88312; 88333; 89051; 93005; 94640; C1887

== ENCOUNTER → 2025-02-10 14:22 | Outpatient (REF) | payer OTHER, SELFPAY | LOC: HWWDC 14:22 | PROVIDERS: ATTENDING PHYSICIAN Family Medicine | DX: Z12.31 Encounter for screening mammogram for malignant neoplasm of breast (principal) | CPT/HCPCS: 77063; 77067 ==

== ENCOUNTER → 2025-02-16 13:48 | Outpatient (REF) | payer OTHER, SELFPAY | LOC: HWRAD 13:48 | PROVIDERS: ATTENDING PHYSICIAN Student in an Organized Health Care Education/Training Program; FAMILY PHYSICIAN Family Medicine | DX: D86.9 Sarcoidosis, unspecified (principal) | CPT/HCPCS: 76700 ==

== ENCOUNTER → 2025-03-05 13:40 | Outpatient (REF) | payer OTHER, SELFPAY | LOC: HWRAD 13:40 | PROVIDERS: ATTENDING PHYSICIAN Family Medicine | DX: Z13.820 Encounter for screening for osteoporosis (principal) | CPT/HCPCS: 77080 ==